=== PATIENT | female | born 1935 | race Caucasian/White ===

== ENCOUNTER 2017-04-27 22:39 | Emergency (ER) | payer SELFPAY ==
[~2017-04-27] VITALS: Ht 157.5 cm; Wt 79.4 kg
[2017-04-27 22:31] VITALS: BP 140/75
[~2017-04-27 22:39] MED LIST: UNOBMED
--- NOTE | 2017-04-27 22:58 | Emergency Room Report ---
History of Present Illness General Chief Complaint: Skin Rash/Abscess Source: Patient, EMS Present Illness HPI Patient presents by paramedics for reports of rash Reports it has been ongoing for the past 3 weeks She complains it as being puritic She denies any fevers Denies any chest pain or shortness of breath denies any back or flank pain She reports that she was given a recent medication by one of her doctors for the skin Denies any dysuria Allergies: Coded Allergies: PENICILLINS (Verified Allergy, Unknown, 04/27/17) Patient History Past Medical History: see triage record Pertinent Family History: none Last Menstrual Period: n/a Reviewed Nursing Documentation: PMH: Agreed, PSxH: Agreed Nursing Documentation-PMH Past Medical History: No History, Except For Hx Hypertension: Yes Review of Systems All Other Systems: negative except mentioned in HPI Physical Exam Vital Signs Date Time Temp Pulse Resp B/P (MAP) Pulse Ox O2 Delivery O2 Flow Rate FiO2 04/27/17 22:19 99.1 82 16 140/75 98 Room Air Sp02 EP Interpretation: reviewed, normal General Appearance: well appearing, no apparent distress Head: normocephalic, atraumatic Eyes: bilateral eye PERRL, bilateral eye EOMI ENT: hearing grossly normal, normal pharynx, TMs + canals normal, uvula midline Neck: full range of motion, supple, no meningismus, no bony tend Respiratory: lungs clear, normal breath sounds, no rhonchi, no respiratory distress, no retraction, no accessory muscle use Cardiovascular #1: normal peripheral pulses, regular rate, rhythm, no edema, no gallop, no JVD, no murmur Gastrointestinal: normal bowel sounds, non tender, soft, no mass, no organomegaly, non-distended, no guarding, no hernia, no pulsatile mass, no rebound Genitourinary: no CVA tenderness Musculoskeletal: normal inspection Neurologic: oriented x3, responsive, building construction engineer III-XII nml as tested, motor strength/ tone normal, sensory intact Psychiatric: mood/affect normal Skin: palpation normal, other - Multiple linear areas of scab formation involving the feet upper arm Lymphatic: normal inspection, no adenopathy Medical Decision Making Diagnostic Impression: Primary Impression: Rash and other nonspecific skin eruption ER Course Patient's rash is concerning for scabies She has had this rash for over past 2 weeks almost 3 weeks now patient will have prescription for the diagnosis At this time patient was observed baseline blood work are normal We did attempt contacting family Patient reports that she would take a taxi cab home patient's ambulatory and will have close followup Labs Test 04/27/17 23:08 White Blood Count 6.9 K/UL (4.8-10.8) Red Blood Count 4.20 M/UL (4.20-5.40) Hemoglobin 13.1 G/DL (12.0-16.0) Hematocrit 40.4 % (37.0-47.0) Mean Corpuscular Volume 96 FL (80-99) Mean Corpuscular Hemoglobin 31.1 PG (27.0-31.0) Mean Corpuscular Hemoglobin Concent 32.3 G/DL (32.0-36.0) Red Cell Distribution Width 12.0 % (11.6-14.8) Platelet Count 245 K/UL (150-450) Mean Platelet Volume 8.1 FL (6.5-10.1) Neutrophils (%) (Auto) 56.7 % (45.0-75.0) Lymphocytes (%) (Auto) 20.2 % (20.0-45.0) Monocytes (%) (Auto) 10.1 % (1.0-10.0) Eosinophils (%) (Auto) 11.0 % (0.0-3.0) Basophils (%) (Auto) 2.0 % (0.0-2.0) Sodium Level 143 MMOL/L (136-145) Potassium Level 4.4 MMOL/L (3.5-5.1) Chloride Level 107 MMOL/L (98-107) Carbon Dioxide Level 30 MMOL/L (21-32) Anion Gap 7 mmol/L (5-15) Blood Urea Nitrogen 33 mg/dL (7-18) Creatinine 1.2 MG/DL (0.55-1.30) Estimat Glomerular Filtration Rate mL/min (>60) Glucose Level 126 MG/DL (74-106) Calcium Level 9.1 MG/DL (8.5-10.1) Last Vital Signs Date Time Temp Pulse Resp B/P (MAP) Pulse Ox O2 Delivery O2 Flow Rate FiO2 04/27/17 22:31 99.1 82 16 140/75 98 Room Air Status: improved Disposition: HOME, SELF-CARE Condition: Improved Scripts Permethrin* (ELIMITE*) 60 Gm Cream..g. 1 APPLIC TOPIC ONCE, #60 GM 2 Refills Apply cream from head to toe; leave on for 8-14 hours before washing off with water; may reapply in 1 week if live mites appear. Prov: CHOCO LOMELI D.O. 04/28/17 Additional Instructions: Patient is provided with the discharge instructions notified to follow up with primary doctor in the next 2-3 days otherwise return to the er with any worsening symptoms. Please note that this report is being documented using [employer] technology. This can lead to erroneous entry secondary to incorrect interpretation by the dictating instrument. CHOCO LOMELI D.O. Apr 27, 2017 22:58
[2017-04-27 23:48] LABS: HEMATOCRIT 40.4 % (37.0-47.0); HEMOGLOBIN 13.1 G/DL (12.0-16.0); LYMPHOCYTES % (AUTO) 20.2 % (20.0-45.0); MEAN CORPUSCULAR VOLUME 96 FL (80-99); MONOCYTES % (AUTO) 10.1 % (1.0-10.0); NEUTROPHILS % (AUTO) 56.7 % (45.0-75.0); PLATELET COUNT 245 K/UL (150-450); WHITE BLOOD COUNT 6.9 K/UL (4.8-10.8)
[2017-04-28 00:01] LABS: ANION GAP 7 mmol/L (5-15); BLOOD UREA NITROGEN 33 mg/dL (7-18); CALCIUM 9.1 MG/DL (8.5-10.1); CARBON DIOXIDE 30 MMOL/L (21-32); CHLORIDE 107 MMOL/L (98-107); CREATININE 1.2 MG/DL (0.55-1.30); POTASSIUM 4.4 MMOL/L (3.5-5.1); SODIUM 143 MMOL/L (136-145)
[2017-04-28] MEDS ORDERED: PERMETHRIN60 GM TOPIC (00:59)
[2017-04-28 01:15] VITALS: BP 134/73
[2017-04-28 02:04] VITALS: BP 134/73
== END 2017-04-28 02:04 | disposition home or self-care (01) ==
LOC: EDBD 22:39 → EMR 23:00
DX: R21 Rash and other nonspecific skin eruption (principal); I10 Essential (primary) hypertension; Z88.0 Allergy status to penicillin
CPT/HCPCS: 36415; 80048; 85025; 99284